=== PATIENT | female | born 1940 | race Caucasian/White ===

== ENCOUNTER 2022-02-01 14:37 | Emergency (ER) | payer MEDICARE, OTHER ==
[~2022-02-01] VITALS: Ht 165.1 cm; Wt 72.6 kg
[2022-02-01] MEDS ORDERED: LEVOTHYROXINE125 MC1 PO (15:59)
[2022-02-01] MEDS ORDERED: METOPROLOL SUC200 MG PO (16:00)
[2022-02-01] MEDS ORDERED: NORVASC5 MG PO (16:00)
[2022-02-01] MEDS ORDERED: HYDROCHLOROTH12.5 MG PO (16:01)
[2022-02-01] MEDS ORDERED: K-TAB ER20 MEQ PO (16:01)
[2022-02-01] MEDS ORDERED: PAROXETINE HCL10 MG PO (16:02)
[2022-02-01] MEDS ORDERED: TRUSOPT10 ML (16:03)
[2022-02-01] MEDS ORDERED: DORZOLAMIDE-TIM10 ML OPTH (17:05)
[2022-02-01] MEDS ORDERED: PREDNISOLONE ACE5 ML OPTH (17:06)
[2022-02-01] MEDS ORDERED: MAGNESIUM500 MG PO (17:07)
[2022-02-01] MEDS ORDERED: BRIMONIDINE TART5 M1 OP (17:08)
[2022-02-01] MEDS ORDERED: ASPIRIN81 MG PO (17:08)
== END 2022-02-01 16:33 | disposition home or self-care (01) ==
LOC: ED 14:37
DX: S51.812A Laceration without foreign body of left forearm, initial encounter (principal); Z23 Encounter for immunization; I10 Essential (primary) hypertension; E03.9 Hypothyroidism, unspecified; Z79.899 Other long term (current) drug therapy; W11.XXXA Fall on and from ladder, initial encounter
CPT/HCPCS: 73090; 90471; 90714; 99283-25